=== PATIENT | female | born 1985 | race Caucasian/White ===

== ENCOUNTER → 2019-09-15 17:35 | Outpatient (BNVA) | payer MEDICAID, SELFPAY | PROVIDERS: Family Provider Nurse Practitioner Family; PCP Registered Nurse; Visit Provider Obstetrics & Gynecology | DX: Z12.4 Encounter for screening for malignant neoplasm of cervix (principal); N92.0 Excessive and frequent menstruation with regular cycle | CPT/HCPCS: 82728; 83540; 83550; 84443; 85025 ==

== ENCOUNTER 2019-10-11 05:19 | Day surgery (SDC) | payer MEDICAID, SELFPAY ==
[2019-10-06 09:35] VITALS: BMI 54.2
--- NOTE | 2019-10-06 09:49 | ANES.PREANE2 ---
Pre-Anesthetic Assessment Pre-Anesthetic Assessment: Height/Weight: Height 1.63 m Weight 143.335 kg Preop Diagnosis: Endometrial polyp, Menorrhagia Proposed Procedure: Operation Date: 10/11/19 07:00 Proposed Procedures p Hysteroscopy 67019 [id number] N92.0 N84.0(Not Applicable) - MD jose antonio Iyer Dilation And Curettage (D&C)/paracervical block(Not Applicable) - Chandler Teran MD Social: Social History: Alcohol () and Tobacco (2018) Exam: Pre-Anes Outpt Exam: alert, oriented x 3, clear to auscultation bilaterally and regular rate & rhythm Airway: Submandibular: WNL Cervical ROM: WNL MP: 2 Dentition: Other (lip ring, teeth ok) History/ROS: No significant history except as noted Pulmonary: Pulmonary: None reported CV/HEM: CV/HEM: HTN : : None reported Hepatic: Hepatic: None reported GI: GI: GERD (controlled) Metabolic: Metabolic: Morbid obesity Musc/skel: Musc/skel: None reported Neuropsych: Neuropsych: None reported Anesthetic Plan: ASA status: 2 Anesthesia: Anesthesia Evaluation and MAC Risk of > 500 ml blood loss (7ml/kg in children): No PFSH Anesthesia PFSH: Medical History Gastroesophageal reflux Hypertension Obesity Surgical History History of section, low transverse (~2005) Performed at [facility] in [place], [place]. History of elbow replacement (~1993) Family History Mother Diabetes Hypertension Social History Smoking and tobacco status: former smoker Quit status (tobacco): has quit using tobacco Year quit tobacco: 2019 Alcohol intake: current Alcohol intake frequency: holidays/special occasions only Substance/Drug Use: never Data Anesthesia Cardiac Studies: No Data to Display
[2019-10-11 06:00] VITALS: BP 157/102; PULSE 90; RESP 18; TEMP 37.1; O2SAT 98
[2019-10-11] MEDS: ketorolac 30 mg/mL INJ IVP (06:11)
[2019-10-11] MEDS: sodium chloride 0.9% 1,000 ML 30 ML IV (06:11)
[2019-10-11 06:19] LABS: OR HCG Qualitative Urine Negative (Negative)
--- NOTE | 2019-10-11 06:26 | P.ANESUD_ITS ---
Pre-Anesthetic Update Pre-Anesthetic Assessment: Date of Surgery/Procedure: 10/11/19 Preop Kelsi gnosis: Endometrial polyp, Menorrhagia Proposed Procedure: Operation Date: 10/11/19 07:00 Proposed Procedures p Hysteroscopy [id number] 17714 N92.0 N84.0(Not Applicable) - Chandler Teran MD s Dilation And Curettage (D&C)/paracervical block(Not Applicable) - Chandler Teran MD Any changes to Pre-Anesthetic Assessment?: No Last Intake: Intake Last Liquid Date 10/11/19 Last Liquid Time 04:00 Last Solid Date 10/10/19 Last Solid Time 20:00 Labs Last 48hrs: Laboratory Results - last 48 hr 10/11/19 05:55 Urine HCG, Qual Negative Vitals: Temperature 98.8 F 10/11/19 06:00 Temperature Source Temporal Artery S can 10/11/19 06:00 Pulse Rate 90 10/11/19 06:00 Respiratory Rate 18 10/11/19 06:00 Blood Pressure 157/102 10/11/19 06:00 Blood Pressure Keisha n 120 10/11/19 06:00 Pulse Oximetry 98 10/11/19 06:00 Oxygen Delivery Me thod 10/11/19 06:00 Exam: Pre-Anes Outpt Exam: alert, oriented x 3, clear to auscultation bilaterally and regular rate & rhythm Other Pertinent Information: Other Pertinent Information: took metoprolol, oral control and omeprazole Cardiac Studies: No Data to Display
--- NOTE | 2019-10-11 06:38 | W.PM.OPSUD ---
Surgery/Procedure H&P Update DATE OF PROCEDURE: October 11, 2019 DATE H&P PERFORMED: 10/06/19 H&P UPDATE INFORMATION: I have reviewed H&P completed within last 30 days, I have examined patient prior to procedure, No changes to prior documentation and H&P is in [facility] EMR on date indicated PREOP DIAGNOSIS: Endometrial polyp, Menorrhagia PLANNED PROCEDURE: Operation Date: 10/11/19 07:00 Proposed Procedures p Hysteroscopy [id number] N92.0 N84.0(Not Applicable) - Chandler Teran MD s Dilation And Curettage (D&C)/paracervical block(Not Applicable) - Chandler Teran MD
[2019-10-11 07:43] VITALS: BP 128/60; PULSE 88; RESP 18; TEMP 36.4; O2SAT 99
--- NOTE | 2019-10-11 07:48 | P.OP_ITS ---
Operative Report Date of procedure: October 11, 2019 Pre-op Diagnosis: Endometrial polyp, Menorrhagia Post-op Diagnosis: Endometrial polyp, Menorrhagia Procedure Done: Hysteroscopy with D&C, Paracervical block Specimens removed/disposition: Endometrial curettings Surgeon: Chandler Teran Director Of Career Services: None Anesthesia: MAC and Other (Paracervical block) Estimated blood loss (mL): 2 IV fluids (mL): 800 Complications: None Findings: First degree uterine prolapse. No polyps seen within the endometrial cavity or cervical canal. Fluffy appearing endometrial lining. Brief History: Patient is a 34-year-old white female 1, para 1 who had presented to the office on 03/2019 with a complaint of abnormal uterine bleeding. She had been treated with high-dose control taper initially to correct the bleeding. However in July her bleeding continued. She had another high dose taper at that time. At visit on 09/15, she had what appeared to be a polyp protruding from the cervix. Hysteroscopy was recommended and she is presenting for that at this time. Procedure: The patient was taken to the operating room where IV sedation was started. She was prepped and draped in the usual sterile fashion in the dorsal supine position with legs in Ted style stirrups. Sequential compression boots had been placed prior to starting the case. Patient had voided just before coming to the operating room. Exam under anesthesia was performed and the patient was noted to have first- degree uterine prolapse. No polyps were seen. A weighted speculum was placed in the vagina and the cervix was grasped with a single-tooth tenaculum. A paracervical block was performed with a total of 12 mL of 2% lidocaine with epinephrine used. The cervix was serially dilated until a operative hysteroscope could be passed. Crystalloid solution was used as a distention media. The endometrial cavity was inspected. No polyps were seen within the endometrial cavity or cervix. She had a fluffy appearing endometrial lining. Sharp curettage was performed until there was a gritty texture throughout the endometrial cavity. The tenaculum was removed and there was minimal bleeding from the tenaculum site. Patient tolerated the procedure well. Sponge and needle counts were correct. DRAINS: None POSTOPERATIVE STATUS: The patient was transferred to the recovery room in satisfactory condition DISPOSITION: Discharge to home when criteria was met. FOLLOWUP APPOINTMENT: Followup appointment had been scheduled on 10/28/2019 in my office. MEDICATIONS: She received prescriptions for Tramadol 50 mg, 1 to 2 tablets every 6 hours as needed for pain, #10, 0 refills Patient may use OTC ibuprofen 200 mg, 4 tablets 3 times a day as needed for pain. She is to resume her usual home medications.
[2019-10-11 07:55] VITALS: BP 104/77; PULSE 79; RESP 18; O2SAT 100
== END 2019-10-11 08:21 | disposition home or self-care (01) ==
PROVIDERS: Family Provider Nurse Practitioner Family; PCP Registered Nurse; Visit Provider Obstetrics & Gynecology
PROC: 0UJD8ZZ Inspection of Uterus and Cervix, Via Natural or Artificial Opening Endoscopic (ICD-10-PCS; CPT 58555; principal; 2019-10-11 07:00)
PROC: (CPT 58120; 2019-10-11 07:00)
DX: N84.0 Polyp of corpus uteri (principal); N92.0 Excessive and frequent menstruation with regular cycle; K21.9 Gastro-esophageal reflux disease without esophagitis; I10 Essential (primary) hypertension; E66.01 Morbid (severe) obesity due to excess calories; Z68.43 Body mass index [BMI] 50.0-59.9, adult; Z87.891 Personal history of nicotine dependence
CPT/HCPCS: 58558; 12345; 81025; 84703; 88305; 96374; J1885; J2001; J2250; J2704; J3010; J7030